=== PATIENT | female | born 1980 | race Hispanic/Latino ===

== ENCOUNTER 2022-02-05 14:34 | Emergency (ER) | payer SELFPAY ==
[2022-02-05] MEDS ORDERED: FLUORESCEIN 1 MG STRIP OP ONE (16:52)
[2022-02-05] MEDS ORDERED: TETRACAINE 0.5% OPHTH SOLN 4ML OU ONE (16:54)
[2022-02-05] MEDS ORDERED: SODIUM CHLORIDE 0.9% 1000 ML 1,000 ML IV ONE (17:42)
[2022-02-05] MEDS ORDERED: ERYTHROMYCIN 5 MG/1 GM OPHTH OINT OD ONE (18:22)
--- NOTE | 2022-02-05 18:30 | Emergency Department Report ---
ED Eye Problem HPI - General Chief complaint: Eye Problems Stated complaint: FB IN LEFT EYE Time Seen by Provider: 02/05/22 16:20 Source: patient Mode of arrival: Ambulatory Limitations: No Limitations - History of Present Illness Initial comments: 41-year-old white female with no past medical history presents to the emergency department for evaluation of possible foreign body to left eye. She states that while at work yesterday, she opened a box and a piece of the tape got stuck to her eyeball. She states that last night her boyfriend and mother tried several things to get the tape out of her eye. She states that things water to flush it followed by Q-tips and cotton but were unsuccessful. Patient presents with pain and drainage to left eye. MD chief complaint: eye pain, foreign body -: Gradual, days(s) (1) Onset Description: sudden Location: left eye Place: work Eye Symptoms: burning, redness, pain, foreign body sensation, discharge Severity scale (0 -10): 7 If Pain, Quality: aching Consistency: constant Associated Symptoms: denies: headache, neck pain, cough, rhinorrhea - Related Data Previous Rx's Medication Instructions Recorded Last Taken Type Erythromycin [Erythromycin Ophth 1 applicatio OS QPM 7 Days #1 tube 02/05/22 Unknown Rx Oint] Allergies Allergy/AdvReac Type Severity Reaction Status Date / Time No Known Allergies Allergy Unverified 11/05/13 13:44 ED Review of Systems ROS: Stated complaint: FB IN LEFT EYE Other details as noted in HPI Comment: All other systems reviewed and negative Constitutional: denies: chills, fever Eyes: eye pain, eye discharge, vision change Respiratory: denies: shortness of breath Cardiovascular: denies: chest pain Gastrointestinal: denies: nausea, vomiting Neurological: denies: headache ED Past Medical Hx - Past Medical History Hx Hypertension: Yes Additional medical history: hyperthyroid syndrome - Surgical History Past Surgical History?: No - Social History Smoking Status: Never Smoker - Medications Home Medications: Home Medications Medication Instructions Recorded Confirmed Last Taken Type Erythromycin [Erythromycin Ophth 1 applicatio OS QPM 7 Days #1 tube 02/05/22 Unknown Rx Oint] ED Physical Exam - General Limitations: No Limitations General appearance: alert, in no apparent distress - Head Head exam: Present: atraumatic, normocephalic - Eye Eye exam: Present: normal appearance, conjunctival injection. Absent: periorbital swelling, periorbital tenderness - Expanded Eye Exam Expanded Pupils: Regular, Round: Bilateral, Reactive: Bilateral Sclera/Conjunctival: Injection: Left, Foreign Body: Left, Exudate: Left - ENT ENT exam: Present: normal exam - Neck Neck exam: Present: normal inspection - Respiratory Respiratory exam: Absent: respiratory distress - Cardiovascular Cardiovascular Exam: Present: regular rate - GI/Abdominal GI/Abdominal exam: Absent: distended - Extremities Exam Extremities exam: Present: normal inspection - Back Exam Back exam: Present: normal inspection. Absent: CVA tenderness (R), CVA tenderness (L) - Neurological Exam Neurological exam: Present: alert, oriented X3, normal gait - Psychiatric Psychiatric exam: Present: normal affect, normal mood - Skin Skin exam: Present: warm, dry, intact, normal color ED Course Vital Signs 02/05/22 02/05/22 15:12 19:09 Temperature 98.3 F 98.0 F Pulse Rate 91 H 80 Respiratory 14 20 Rate Blood Pressure 167/99 Blood Pressure 126/53 [Left] O2 Sat by Pulse 98 97 Oximetry - Eye Procedure Alcaine Drops Administered: Yes Eye Irrigated w/ Saline (ccs): 250 Antibiotic Oinment/Drps Admin: left eye Progress: Eye examined with Mandel lamp after fluorescein strip was placed and she had positive fluorescein uptake to the center of the cornea. Eye was also examined by Dr. Montoya who felt that fluorescein uptake resembled corneal ulcer rather than an abrasion or foreign body. ED Medical Decision Making - Medical Decision Making 41-year-old white female with no past medical history presents to the emergency department for evaluation of possible foreign body to left eye. She states that while at work yesterday, she opened a box and a piece of the tape got stuck to her eyeball. She states that last night her boyfriend and mother tried several things to get the tape out of her eye. She states that things water to flush it followed by Q-tips and cotton but were unsuccessful. Patient presents with pain and drainage to left eye. Examination of eye with fluorescein lamp most consistent with corneal ulcer. Patient was given erythromycin ointment in the emergency department and discharged home with prescription for erythromycin ointment to use at night and advised to follow-up with ophthalmology tomorrow for further evaluation and management. She verbalized understanding of and agreement with plan of care. Critical care attestation.: If time is entered above; I have spent that time in minutes in the direct care of this critically ill patient, excluding procedure time. ED Disposition Clinical Impression: Corneal ulcer Qualifiers: Laterality: left Qualified Code(s): H16.002 - Unspecified corneal ulcer, left eye Disposition: HOME / SELF CARE / HOMELESS Is pt being admited?: No Does the pt Need Aspirin: No Condition: Stable Instructions: Corneal Ulcer, How to Use Eye Drops and Eye Ointments Additional Instructions: Take medications as prescribed. Follow-up with ophthalmology tomorrow for further evaluation and management. Return to the emergency department as needed. Prescriptions: Erythromycin [Erythromycin Ophth Oint] 1 applicatio OS QPM 7 Days #1 tube Referrals: ERIC VOGEL MD [Staff Physician] - 3-5 Days MERCEDES JARAMILLO MD [Staff Physician] - 3-5 Days HERMILA RALPH MD [Staff Physician] - 3-5 Days Forms: Work/School Release Form(ED) Time of Disposition: 18:32
[2022-02-05 19:11] VITALS: BP 126/53
== END 2022-02-07 17:12 | disposition home or self-care (01) ==
LOC: ED 14:34
DX: H16.002 Unspecified corneal ulcer, left eye (principal); I10 Essential (primary) hypertension; Z98.890 Other specified postprocedural states; Z79.899 Other long term (current) drug therapy
CPT/HCPCS: 99283; J7030